=== PATIENT | male | born 1945 | race Caucasian/White ===

== ENCOUNTER 2020-05-16 07:47 | Outpatient (CLI) | payer MEDICARE, SELFPAY ==
--- NOTE | ~2020-05-16 | NM_ITS ---
EXAMINATION: NM bone scan whole body DATE: 05/16/2020 12:07 INDICATION: Malignant neoplasm of the prostate TECHNIQUE: 24.4 mCi Tc-99m HDP was administered intravenously. Delayed whole-body scintigrams were o btained. COMPARISON: There are no relevant recent imaging studies at our institution. FINDINGS: There is some soft tissue extravasation at the site of injection at the right antecubital fossa with linear extension of likely lymphatic uptake extending proximally in the anterior soft tissues of the right upper arm. Likely degenerative joint centered uptake at the bilateral hands and wrists and at t he left acromioclavicular joint. No other suspicious bone lesions to suggest metastatic disease. IMPRESSION: 1. No lesion suspicious for metastatic disease. Reviewed, dictated and finalized at location A.
== END 2020-05-16 07:48 | disposition home or self-care (01) ==
PROVIDERS: PCP Family Medicine; Visit Provider Urology
DX: C61 Malignant neoplasm of prostate (principal)
CPT/HCPCS: 78306; A9561

== ENCOUNTER 2020-06-27 09:50 | Outpatient (CLI) | payer MEDICARE, SELFPAY ==
--- NOTE | 2020-06-27 09:55 | ECG_ITS ---
Measurements Intervals [place] Rate: 58 P: -6 CO: 147 QRS: -5 QRSD: 95 T: 4 QT: 402 QTc: 397 Interpretive Statements SINUS BRADYCARDIA DELAYED PRECORDIAL R/S TRANSITION MINIMAL Q WAVES- INFERIOR LEADS BASELINE ARTIFACT- I, III, AVR, AVL BORDERLINE ECG Electronically Signed On 06-27-2020 10:27:57 CDT by Kishan Escobedo D.O.
[2020-06-27 10:41] LABS: Anion Gap 8 mmol/L (8-16); Blood Urea Nitrogen 22 mg/dL (9-20); Calcium 9.5 mg/dL (8.4-10.2); Carbon Dioxide 30 mmol/L (22-30); Chloride 101 mmol/L (98-107); Estimated Glomerular Filt Rate 59; Glucose 264 mg/dL (75-110); Potassium 4.5 mmol/L (3.4-5.0); Sodium 139 mmol/L (137-145)
== END 2020-06-27 09:51 | disposition home or self-care (01) ==
LOC: ANHSURGERY 09:55
PROVIDERS: Anesthesiology; PCP Family Medicine; Visit Provider Urology
DX: I10 Essential (primary) hypertension (principal); E11.9 Type 2 diabetes mellitus without complications; C61 Malignant neoplasm of prostate; Z01.818 Encounter for other preprocedural examination; R94.31 Abnormal electrocardiogram [ECG] [EKG]
CPT/HCPCS: 36415; 80048; 87086; 93005

== ENCOUNTER 2020-07-05 01:28 | Outpatient (CLI) | payer MEDICARE, SELFPAY ==
[2020-07-05 18:04] LABS: SARS-CoV-2 RNA PCR Negative
== END 2020-07-05 01:29 | disposition home or self-care (01) ==
LOC: ANHCOVIDDT 01:29
PROVIDERS: PCP Family Medicine; Visit Provider Urology
DX: Z01.812 Encounter for preprocedural laboratory examination (principal); Z20.828 Contact with and (suspected) exposure to other viral communicable diseases
CPT/HCPCS: 87635; C9803; U0003

== ENCOUNTER 2020-07-08 02:38 | Day surgery (SDC) | payer MEDICARE, SELFPAY ==
[2020-06-26 09:09] VITALS: BMI 26.1
[2020-07-08] VITALS (8 sets, daily range): BP systolic 138–169; BP diastolic 44–80; PULSE 53–71; RESP 12–18; TEMP 36.2–36.3; O2SAT 92–100
[2020-07-08] MEDS: LACTATED RINGERS 1,000 ML 30 ML IV CONT ×2 (11:55→15:10)
[2020-07-08 11:57] LABS: Glucose Point of Care 222 (65-105)
--- NOTE | 2020-07-08 12:53 | WPDHPUPDATE1 ---
History and Physical Update Update Date/Time: 07/08/20 12:53 History and Physical has been reviewed, including an updated exam of the patient. There are NO changes in the patient's condition. Risks, benefits, and alternatives have been discussed and questions answered. Patient agrees to proceed with procedure.
--- NOTE | 2020-07-08 13:17 | WPDANESEPPF ---
Anes - Initial Pre Proc Eval Procedure: Operation Date: 07/08/20 13:15 Proposed Procedures p Insertion SpaceOAR Hydrogel System - Rainer Nash MD Date/Time: 07/08/20 13:17 Surgeon: Rainer Nash MD Pre Op Diagnosis: Prostate Ca Patient Data Age: 75 Gender: M Height: 5 ft 4 in Weight: 67.85 kg Last Vital Signs Temp 36.3 C L 07/08/20 11:24 Pulse 61 07/08/20 11:24 Resp 18 07/08/20 11:24 BP 169/71 H 07/08/20 11:24 Pulse Ox 100 07/08/20 11:24 Allergies Allergy/AdvReac Type Severity Reaction Status Date / Time No Known Allergies Allergy Unverified 07/08/20 12:15 Home Medications Medication Instructions Recorded Confirmed Type aspirin [Adult Low Dose Aspirin] 81 mg PO QPM 06/26/20 07/08/20 History glipizide 10 mg PO QAM 06/26/20 07/08/20 History lisinopril 10 mg PO QAM 06/26/20 07/08/20 History metformin 1,000 mg PO BID 06/26/20 07/08/20 History metoprolol succinate 25 mg PO QPM 06/26/20 07/08/20 History pravastatin 20 mg PO QPM 06/26/20 07/08/20 History Laboratory Tests 07/08/20 11:55 POC Capillary Glucose 222 mg/dl H mg/dl (65-105) Patient hx anesthesia problems: none Family hx anesthesia problems: none PMFSH Past Medical History Medical History Afib Diabetes Hyperlipidemia Hypertension Social History Social History Smoking status: Never smoker Living arrangements: with family Spiritual care concerns: No Anes - Eval Final PreProcedure Day of Procedure 07/08/20 13:17 Patient weight: normal Heart: regular rate and rhythm Lungs: clear to auscultation Airway: Mallampati scale class II Neurological: alert and oriented Last oral intake: >/= 8 hours ASA classification: III Emergent: no Anesthetic plan: proceed Anesthesia type and monitoring: general GIVS and standard monitoring Informed Consent: The patient's anesthetic plan and its attendant risks and benefits were discussed with the patient/family/POA. Questions were solicited and answers provided to the satisfaction of the patient/family/POA.
--- NOTE | 2020-07-08 13:38 | WPDHPUPDATE1 ---
History and Physical Update Update Date/Time: 07/08/20 13:38 History and Physical has been reviewed, including an updated exam of the patient. There are NO changes in the patient's condition. Risks, benefits, and alternatives have been discussed and questions answered. Patient agrees to proceed with procedure. ROS - normal Plan for Space Oar placement.
[2020-07-08] MEDS: ceFAZolin 2 GM/D5W 50 ML 2 GM/50 ML BAG IVPB (13:44)
--- NOTE | 2020-07-08 14:07 | PM.PROC ---
Procedure Note - Detailed Date of procedure: 07/08/20 Pre-op diagnosis: Prostate Ca Post-op diagnosis: same Procedure performed: Space Oar placement Description of procedure: Patient is taken the operative suite and correctly identified. Once anesthesia was obtained he was placed in dorsal lithotomy position and prepped and draped usual sterile fashion. Transrectal ultrasound was then performed. The prostate was visualized in both transverse and sagittal views. Plane between the prostate and the rectum was easily identified. Using an spinal needle we went ahead and inserted this into the space between the prostate and the rectum. Placement was confirmed in both views. We went ahead and injected a little saline in the good separation of the prostate from the rectal wall. We then went ahead and placed the Space Oar mixture which had been prepared per instructions onto the spinal needle. This was injected in a slow pace. There was good separation of the prostate and the rectum. This was visualized on both views. Needle was removed. Patient is taken recovery room stable condition. Anesthesia: GLMA Surgeon: Rainer Nash MD Drains: No Packing: No Pathology: none sent Complications: No immediate complications Condition: stable Disposition: PACU
[2020-07-08 14:22] LABS: Glucose Point of Care 212 (65-105)
[2020-07-08] MEDS: fentaNYL CITRATE INJ (*CRX) 100 MCG/2 ML VIAL 25 MCG IV PUSH ×4 (14:30→14:45)
--- NOTE | 2020-07-08 15:30 | SUR.PHASEII ---
1534- Call to Dr. Nash' office to clarify when patient can resume taking home medication regimen ASA 81MG. Resume taking 07/11/2020.
== END 2020-07-08 15:58 | disposition home or self-care (01) ==
LOC: ANHSURGERY 11:11 → ANHENDO 13:40
PROVIDERS: PCP Family Medicine; Visit Provider Urology
PROC: (CPT 55874; principal; 2020-07-08 13:15)
DX: C61 Malignant neoplasm of prostate (principal)
CPT/HCPCS: 55874; A9270; C1889; J0690; J1100; J2405; J2704; J3010; J7120

== ENCOUNTER 2020-07-15 09:40 | Outpatient (CLI) | payer MEDICARE, SELFPAY ==
--- NOTE | ~2020-07-15 | MR_ITS ---
EXAMINATION: MR pelvis wo con DATE: 07/15/2020 11:15 INDICATION: Malignant neoplasm of prostate. TECHNIQUE: Magnetic resonance imaging (MRI) of the pelvis was performed without intravenous contrast. Sequences included axial and coronal FS FIESTA, coronal T2-weighted FS FSE, axial T2-weighted FSE, a xial STIR FSE, coronal and axial LAVA, axial dual-echo T1-weighted FSPGR, and axial DWI. COMPARISON: Bone scan 05/16/2020 FINDINGS: The prostate is moderately enlarged. There is a 2.7 x 1.3 cm fluid collection between the prostate an d rectum. There is diverticulosis of the colon without evidence of diverticulitis. There are no patho logically enlarged lymph nodes. There is no free intraperitoneal fluid. There is a left inguinal vesta ia containing fat. IMPRESSION: 1. Moderately enlarged prostate. A small fluid collection between the prostate and rectum may be martín tommy. No evidence of metastatic disease. Reviewed, dictated and finalized at location A. UCT DEMONSTRATOR IMPRESSION: 1. Moderately enlarged prostate. A small fluid collection between the prostate and rectum may be hematoma. No evidence of metastatic disease.
== END 2020-07-15 09:41 | disposition home or self-care (01) ==
PROVIDERS: PCP Family Medicine
DX: C61 Malignant neoplasm of prostate (principal); K57.30 Diverticulosis of large intestine without perforation or abscess without bleeding
CPT/HCPCS: 72195

== ENCOUNTER → 2021-05-12 02:45 | Outpatient (CLI) | payer MEDICARE, SELFPAY ==
[2021-05-12 20:46] LABS: SARS-CoV-2 RNA PCR Positive
== END ==
PROVIDERS: PCP Internal Medicine; Visit Provider Internal Medicine
DX: Z20.822 Contact with and (suspected) exposure to COVID-19 (principal)
CPT/HCPCS: C9803; U0003; U0005

== ENCOUNTER 2021-05-16 10:40 | Observation (INO) | payer MEDICARE, SELFPAY ==
[2021-05-16] VITALS (10 sets, daily range): BP systolic 139–149; BP diastolic 55–85; PULSE 81–93; RESP 18–24; TEMP 36.4–37.1; O2SAT 96–100; BMI 24.6
--- NOTE | ~2021-05-16 | XR_ITS ---
EXAMINATION: XR chest 1V portable INDICATION: Cough, COVID positive TECHNIQUE: Portable AP chest at 1120 hours COMPARISON: 07/01/2014 FINDINGS: There are patchy opacities of the mid and lower lung zones, left greater than right. No ple ural effusion or pneumothorax is identified. The cardiomediastinal silhouette is normal. IMPRESSION: 1. Patchy opacities of the mid and lower lung zones, likely COVID 19 pneumonia. Reviewed, dictated and finalized at location A.
--- NOTE | 2021-05-16 10:57 | ECG_ITS ---
Measurements Intervals [place] Rate: 86 P: -4 [place]: 148 QRS: 1 QRSD: 90 T: -7 QT: 356 QTc: 427 Interpretive Statements SINUS RHYTHM BORDERLINE T WAVE ABNORMALITY- INFERIOR LEADS BASELINE ARTIFACT- I, II, AVR, AVL, AVF, V3 BORDERLINE ECG Electronically Signed On 05-16-2021 14:20:51 CDT by Kishan Escobedo D.O.
[2021-05-16] MEDS: SODIUM CHLORIDE 0.9% IV 1,000 ML 999 ML IV CONT ×2 (11:20→12:34)
[2021-05-16 11:24] LABS: Basophils Percent Auto 0.2 % (0.2-1.2); Eosinophils Percent Auto 0.2 % (0-4.4); Hemoglobin 12.9 g/dL (14.0-18.0); Immature Granulocyte Absolute 0.03 K/mm3 (0.00-0.031); Immature Granulocyte Percent A 0.3 % (0-0.5); Lymphocytes Percent Auto 8.5 % (18.3-44.2); Mean Corpuscular HGB Conc 33.1 g/dl (32-36); Mean Corpuscular Volume 99.7 fl (80-100); Mean Platelet Volume 11.3 fl (7.4-10.4); Monocytes Percent Auto 9.1 % (2.6-8.5); Neutrophils Absolute Auto 8.7 K/mm3 (1.3-6.7); Neutrophils Percent Auto 81.7 % (45.5-73.1); Platelet Count Result 201 k/mm3 (150-375); Red Blood Count 3.91 M/mm3 (4.6-6.20); Red Cell Distribution Width 11.7 % (11.5-14.5); White Blood Count 10.6 K/mm3 (4.5-10.0)
--- NOTE | 2021-05-16 11:28 | ED.WEAKNESS ---
HPI - Weakness General Chief complaint: Weakness Stated complaint: weakness, covid + Time Seen by Provider: 05/16/21 10:42 Source: RN notes reviewed History of Present Illness HPI Narrative: Patient presents emergency department from home for weakness. Patient states he tested positive for COVID-19 on May 12 states symptoms began approximately the 10th states has been having decreased appetite and weakness at home he does note a cough this been nonproductive as well as intermittent fevers he denies any abdominal pain nausea or vomiting patient states he is a diabetic but is not been eating and drinking well states he has been taking his medications Related Data Home Medications Medication Instructions Recorded Confirmed aspirin 81 mg PO QPM 06/26/20 01/27/21 Allergies Allergy/AdvReac Type Severity Reaction Status Date / Time No Known Allergies Allergy Verified 05/16/21 10:56 Review of Systems Review of Systems: Gen.: Cinnamon fevers ENT: Denies congestion Respiratory: HPI CV: Denies chest pain or palpitations GI: Denies abdominal pain nausea, emesis or diarrhea denies burning, urgency, frequency or hematuria Musculoskeletal: Denies back pain or muscle pain Neuro: Reports weakness Skin: Denies rash Except as documented, all other systems reviewed and negative [facility] Past Medical History Medical History Afib Diabetes last A1c may 2020, 7.3 per pt Hyperlipidemia Hypertension Prostate cancer Surgical History Surgical History History of prior ablation treatment Family History Family History (Updated 09/12/20 @ 14:06 by Nino Meo APRN) Mother Breast cancer Dementia Sibling Malignant neoplasm of prostate Sibling Malignant neoplasm of prostate Other Diabetes mellitus Heart disease Social History Social History Smoking status: Never smoker Second hand tobacco smoke exposure: Yes Alcohol intake: never Gender identity (if verbalized by the patient): Male Spiritual care concerns: No Exam Narrative: APPEARANCE: No acute distress, nontoxic, resting in bed EYES: EOMI HEENT: Normocephalic, atraumatic, OMM RESPIRATORY: No respiratory distress Clear to auscultation bilaterally with no rhonchi wheezing or rales. CARDIOVASCULAR: Regular rate and rhythm without murmurs rubs or gallops. ABDOMINAL: Soft, nontender, nondistended, no rebound or guarding MUSCULOSKELETAl: Moves all extremities. No clubbing, cyanosis or edema. NEURO: Awake and alert. Following commands, speech normal, no focal deficits SKIN:: Warm, dry. No rashes lesions or abrasions PSYCHIATRIC: Normal affect/mood, Course Course Emergency Course: Called discussed with Dr. Camacho for the ICU discussed the patient's mild DKA at this time recommends giving 2 L of fluid and repeating BMP if anion gap is closed the patient does not need ICU and can go to the floor Called discussed with RAY Warren for Dr. Alexandre presentation work-up agrees with admission at this time will place on MedSurg at this time recommends no insulin and will recheck on floor recommends continued fluids Discussed with patient and family results of workup and diagnosis. Discussed need for admission. Patient and family understand and agree to current treatment plan Vital Signs Vital signs: Vital Signs Temperature 98.8 F 05/16/21 10:51 Pulse Rate 84 05/16/21 10:51 Respiratory Rate 22 H 05/16/21 10:51 Blood Pressure 147/55 H 05/16/21 10:51 Pulse Oximetry 97 05/16/21 10:51 Temperature 98.8 F 05/16/21 10:51 Pulse Rate 85 05/16/21 13:31 Respiratory Rate 20 05/16/21 13:31 Blood Pressure 149/85 H 05/16/21 13:31 Pulse Oximetry 100 05/16/21 13:31 MDM - Weakness Lab Data Result diagrams: 05/16/21 11:04 05/16/21 13:56 Labs:
[2021-05-16 11:36] LABS: Alanine Aminotransferase 23 U/L (4-50); Albumin Level 4.3 g/dL (3.5-5.1); Alkaline Phosphatase 62 U/L (38-126); Anion Gap 18 mmol/L (8-16); Aspartate Amino Transferase 27 U/L (17-59); Bilirubin,Total 0.6 mg/dL (0.2-1.3); Blood Urea Nitrogen 41 mg/dL (9-20); CRP 5.9 mg/dL (<1.0); Calcium 8.9 mg/dL (8.4-10.2); Carbon Dioxide 17 mmol/L (22-30); Chloride 101 mmol/L (98-107); Estimated CRCL calculation 30 ml/min; Estimated Glomerular Filt Rate 40; Glucose 291 mg/dL (65-110); Lactate Dehydrogenase 399 U/L (313-618); Potassium 4.8 mmol/L (3.4-5.0); Sodium 136 mmol/L (137-145)
[2021-05-16 12:10] LABS: Alveolar/Arterial O2 Gradient 41.4 mmHg; Base Excess ABG -8.7 mEq/l (+/-2.0); Fractional Inspired Oxygen 21 %; HCO3 ABG 16.3 mEq/l (22.0-26.0); Oxygen Content ABG 17.2 %vol (16.0-22.0); Oxygen Saturation ABG 92.8 % (95.0-100.0); Oxyhemoglobin 91.4 % THb (90.0-100.0); PCO2 ABG 32.5 mmHg (35.0-45.0); PO2 ABG 69.4 mmHg (80.0-100.0); Total Hemoglobin 13.4 g/dL (12.0-18.0); pH ABG 7.318 (7.350-7.450)
[2021-05-16 12:11] LABS: Device ROOM AIR; Modified Allen's Test Pass; Site Drawn RIGHT RADIAL
[2021-05-16 12:53] LABS: Add Urine Microscopic? YES; Appearance Urine Cloudy (Clear); Bacteria Urine Trace /hpf; Bilirubin Urine Negative (Negative); Blood Urine Negative (Negative); Color Urine Yellow (Yellow); Glucose Urine UA 3+ mg/dL (Negative); Hyaline Casts Urine 15-19 /lpf; Ketones Urine 1+ mg/dL (Negative); Leukocyte Esterase Ur Negative LEU/UL (Negative); Mucus Urine Rare /lpf; Nitrate Urine Negative (Negative); Protein Urine 1+ mg/dL (Negative); Specific Grav Ur 1.017 (1.001-1.035); Squamous Epithelial Cell Urine Rare /hpf (Few); Urobilinogen Urine Negative mg/dL (<2.0); WBC Urine 0-3 /hpf
[2021-05-16 13:03] LABS: Prothrombin Time 13.1 Seconds (11.1-14.7)
[2021-05-16 13:04] LABS: Partial Thromboplastin Time 34.7 SECONDS (22.3-36.8)
[2021-05-16 14:19] LABS: Anion Gap 14 mmol/L (8-16); Blood Urea Nitrogen 37 mg/dL (9-20); Calcium 8.2 mg/dL (8.4-10.2); Carbon Dioxide 18 mmol/L (22-30); Chloride 105 mmol/L (98-107); Estimated CRCL calculation 39 ml/min; Estimated Glomerular Filt Rate 54; Glucose 284 mg/dL (65-110); Potassium 5.2 mmol/L (3.4-5.0); Sodium 137 mmol/L (137-145)
--- NOTE | 2021-05-16 15:00 | PM.IMHP ---
H&P: HPI History of Present Illness Date/Time: 05/16/21 15:00 Chief Complaint: Weakness. Narrative: This is a 76-year-old male with hypertension, hyperlipidemia, and diabetes who presented to the emergency department earlier today via private vehicle from home for evaluation of weakness. He has been feeling unwell since around May 08 and he received a call the following day that he was exposed to someone positive for COVID-19. Unfortunately he tested positive for the same on May 12 despite having been vaccinated. His symptoms include intermittent fevers, poor appetite with decreased oral intake, nonproductive cough, and progressive weakness. Chest x-ray done in the emergency department showed findings suggestive of COVID-19 pneumonia and labs compatible with mild diabetic ketoacidosis. Anion gap did close with IV fluid rehydration in the emergency department and he is now being admitted to the floor for closer monitoring. At the time my evaluation his main complaint is of an ongoing, nagging cough as well as nausea. He thinks he would feel better if he was able to eat however the nausea has just been too significant. He has not vomited. No anosmia or dysgeusia. He had loose stools early on but that has improved. No chest pain or pleuritic pain. Review of Systems Review of Systems: Twelve systems were reviewed with pertinent positives and negatives as per HPI. Patient reports that his fasting glucose is usually around 200 however improved to the low 100s throughout the rest of the day. No blurry vision, polydipsia, or polyuria. He does not recall his most recent hemoglobin A1c. Except as documented, all other systems were reviewed and are negative. [facility] Past Medical History Medical History Chronic kidney disease, stage 3 Baseline creatinine is around 1.30. Hearing loss Hyperlipidemia Hypertension Paroxysmal atrial fibrillation Prostate cancer Type 2 diabetes mellitus Hemoglobin A1c was 7.8% on 05/05/2021. Surgical History Surgical History History of cardiac radiofrequency ablation (2017) Performed at [facility] in [place]. History of tonsillectomy History of vocal cord polypectomy Family History Family History Mother Breast cancer Dementia Sibling Malignant neoplasm of prostate Sibling Malignant neoplasm of prostate Other Diabetes mellitus Heart disease Social History Social History (Updated 05/17/21 @ 00:42 by Briana Schultz PA-C) Social History: Surrogate decision maker: Leny Ludwig, spouse. Code status: Full code. Smoking status: Never smoker Smokeless tobacco user: chewing tobacco Second hand tobacco smoke exposure: Yes Additional smoking assessment comments: former occational use of chewing tobacco. chewing tobacco end date 1969 Alcohol intake: never Substance use: never Additional living arrangements comments: Resides in [place] with his . 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 Spiritual care concerns: No Meds Home Medications and Allergies Home Medications Medication Instructions Recorded Confirmed Type aspirin 81 mg PO QPM 06/26/20 05/16/21 History glipizide 5 mg tablet See Rx Instructions .ROUTE 12/31/20 05/16/21 Rx .COMPLEX #180 tablet pravastatin 20 mg tablet See Rx Instructions .ROUTE 01/20/21 05/16/21 Rx .COMPLEX #90 tablet metoprolol succinate 25 mg 25 mg PO QPM #90 tablet 02/19/21 05/16/21 Rx tablet,extended release 24 hr metformin 500 mg tablet 1,000 mg PO BID #180 tablet 02/20/21 05/16/21 Rx lisinopril 10 mg tablet 20 mg PO QAM #90 tablet 03/30/21 05/16/21 Rx blood sugar diagnostic [Accu-Chek 05/16/21 05/16/21 History Guide test strips] Allergies Allergy/AdvReac Type Severity Reaction Status Date /
--- NOTE | 2021-05-16 16:17 | ADMGEN ---
This patient, Juan Ludwig III, was admitted to [facility] Surg Room 330-01 at 1550. Patient/family oriented to hospital policies and general routines including ID bracelet, bed and alarms, visiting hours, pain management, procedures, bathroom and other care routines, personal items, smoking policy, room service/diet, and visiting hours. Information on how to activate the Rapid Response Team has been discussed. Patient/Family are encouraged to report perceived risks to care and to ask questions if they do not understand what they are told or what they should do.
[2021-05-16 17:11] LABS: Glucose Point of Care 252 mg/dl (65-105)
[2021-05-16] MEDS: INSULIN ASPART (*BKC) 100 UNITS/ML SUB-Q (18:37)
[2021-05-16] MEDS: SODIUM CHLORIDE 0.9% IV 1,000 ML 125 ML IV CONT (18:37)
[2021-05-16] MEDS: ONDANSETRON INJ 4 MG/2 ML VIAL IV PUSH (21:14)
[2021-05-16 21:28] LABS: Glucose Point of Care 166 mg/dl (65-105)
[2021-05-17] VITALS (9 sets, daily range): BP systolic 120–141; BP diastolic 54–64; PULSE 73–93; RESP 16–20; TEMP 36.3–37.1; O2SAT 94–98
[2021-05-17 06:40] LABS: Basophils Percent Auto 0.2 % (0.2-1.2); Eosinophils Percent Auto 0.2 % (0-4.4); Hematocrit 33.6 % (42.0-52.0); Hemoglobin 10.9 g/dL (14.0-18.0); Immature Granulocyte Absolute 0.05 K/mm3 (0.00-0.031); Immature Granulocyte Percent A 0.6 % (0-0.5); Lymphocytes Absolute Auto 0.72 K/mm3 (0.9-3.2); Lymphocytes Percent Auto 8.7 % (18.3-44.2); Mean Corpuscular HGB Conc 32.4 g/dl (32-36); Mean Corpuscular Hemoglobin 32.4 pg (26-34); Mean Platelet Volume 11.1 fl (7.4-10.4); Monocytes Absolute Auto 0.7 K/mm3 (0.1-0.6); Neutrophils Absolute Auto 6.7 K/mm3 (1.3-6.7); Neutrophils Percent Auto 81.3 % (45.5-73.1); Platelet Count Result 220 k/mm3 (150-375); Red Blood Count 3.36 M/mm3 (4.6-6.20); Red Cell Distribution Width 11.4 % (11.5-14.5); White Blood Count 8.3 K/mm3 (4.5-10.0)
[2021-05-17 06:53] LABS: Alanine Aminotransferase 18 U/L (4-50); Albumin Level 3.7 g/dL (3.5-5.1); Alkaline Phosphatase 49 U/L (38-126); Anion Gap 14 mmol/L (8-16); Aspartate Amino Transferase 25 U/L (17-59); Bilirubin,Total 0.6 mg/dL (0.2-1.3); Blood Urea Nitrogen 24 mg/dL (9-20); Calcium 8.2 mg/dL (8.4-10.2); Carbon Dioxide 17 mmol/L (22-30); Chloride 106 mmol/L (98-107); Estimated CRCL calculation 46 ml/min; Estimated Glomerular Filt Rate > 60; Glucose 245 mg/dL (65-110); Magnesium 1.6 mg/dL (1.6-2.3); Potassium 5.6 mmol/L (3.4-5.0); Sodium 137 mmol/L (137-145)
[2021-05-17] MEDS: INSULIN ASPART (*BKC) 100 UNITS/ML SUB-Q ×2 (08:19→12:54)
[2021-05-17 08:20] LABS: Glucose Point of Care 237 mg/dl (65-105)
[2021-05-17] MEDS: ENOXAPARIN 40 MG/0.4 ML SYRINGE SUB-Q (08:20)
[2021-05-17] MEDS: lisinopriL 20 MG TABLET PO (08:21)
[2021-05-17] MEDS: glipiZIDE 5 MG TABLET 10 MG BY MOUTH (08:21)
[2021-05-17] MEDS: SODIUM POLYSTYRENE SULFONONATE 15 GM/60 ML BTL PO (09:31)
[2021-05-17] MEDS: SODIUM CHLORIDE 0.9% IV 1,000 ML 125 ML IV CONT (09:46)
[2021-05-17 12:53] LABS: Glucose Point of Care 209 mg/dl (65-105)
--- NOTE | 2021-05-17 13:41 | PM.IMPN ---
Progress Note: A&P Assessment and Plan (1) Pneumonia due to COVID-19 virus: Code(s): U07.1 - COVID-19; J12.82 - Pneumonia due to coronavirus disease 2019 Status: Acute Assessment and Plan: Supportive care including albuterol MDI, analgesics, and antitussives if needed. 96% on room air. Improved today. Will watch for 24 hours and if feeling better tomorrow will be discharged. (2) Diabetic ketoacidosis: Code(s): E11.10 - Type 2 diabetes mellitus with ketoacidosis without coma Status: Acute Assessment and Plan: Patient met criteria for mild DKA on arrival to the emergency department with metabolic acidosis and anion gap of 18, hyperglycemia, elevated beta hydroxybutyrate, and mild ketonuria. Anion gap has closed with IV fluid rehydration. IV fluids were discontinued at this time. He is well hydrated on examination. And labs are improved from arrival. Continue monitoring. Repeat BMP in the morning (3) Dehydration: Code(s): E86.0 - Dehydration Status: Acute Assessment and Plan: Much improved today. Creatinine almost down to normal. (4) Chronic kidney disease, stage 3: Code(s): N18.30 - Chronic kidney disease, stage 3 unspecified Status: Acute Assessment and Plan: Creatinine improved to 1.1 this morning after IV fluid hydration. Which is back at his baseline. (5) Type 2 diabetes mellitus: Code(s): E11.9 - Type 2 diabetes mellitus without complications Status: Acute Assessment and Plan: Continue glipizide now that creatinine is back to baseline. Initiate sliding scale insulin, Accu-Cheks, and hypoglycemic protocol. (6) Hypertension: Code(s): I10 - Essential (primary) hypertension Status: Acute Assessment and Plan: Blood pressures were reviewed and they are reasonable. Continue antihypertensives and monitor daily. (7) Hyperkalemia: Code(s): E87.5 - Hyperkalemia Status: Acute Assessment and Plan: Potassium was elevated at 5.6 this morning and Kayexalate was given. Will repeat potassium in the morning. Time Spent With Patient Time with patient: 25 - 35 minutes Subjective Date/time seen: 05/17/21 13:41 Interval history: Date of service 05/17/2021: Patient reports feeling much better today. He has more energy. He was able to eat breakfast without any issues. He continues to have a dry cough and mild shortness of breath with exertion. Denies any chest pain, fevers, chills, nausea, vomiting, abdominal pain, leg swelling, calf pain, or any other symptoms at this time. Review of Systems Review of Systems: All systems reviewed & are unremarkable except as noted in HPI and below Exam Narrative: General: 76-year-old man laying flat in bed watching TV. Appears comfortable. In no acute distress. Skin: No jaundice or cyanosis. Good skin turgor. Neck: Full range of motion. Supple Respiratory: Lungs are clear to auscultation bilaterally. No bony chest wall tenderness. Cardiovascular: The heart has a regular rate and rhythm without murmur. Lower extremities: No lower extremity edema. Distal pulses are easily palpated. No calf tenderness to palpation. Gastrointestinal: The abdomen is soft, nontender and nondistended with active bowel sounds. Psychiatric: Lucid and oriented. Memory intact. Neurologic: No focal deficits. Speech is clear. No facial drooping. Objective Data Vital Signs Vital Signs: Vital Signs - 24 hr 05/16/21 15:32 05/16/21 17:30 05/16/21 18:00 Temperature Pulse Rate 81 90 Respiratory Rate 24 H Blood Pressure 144/79 H
[2021-05-17 17:48] LABS: Glucose Point of Care 186 mg/dl (65-105)
[2021-05-17] MEDS: ASPIRIN 81 MG ENTERIC TABLET PO (18:05)
[2021-05-17] MEDS: PRAVASTATIN SODIUM 20 MG TABLET BY MOUTH (18:06)
[2021-05-17] MEDS: METOPROLOL SUCCINATE EXT REL 25 MG TABCR PO (18:06)
[2021-05-17 23:46] LABS: Glucose Point of Care 204 mg/dl (65-105)
[2021-05-18] VITALS: BP 133/65; PULSE 70; RESP 20; TEMP 36.6; O2SAT 98
[2021-05-18 04:00] VITALS: BP 133/62; PULSE 72; RESP 20; TEMP 37; O2SAT 96
[2021-05-18 06:43] LABS: Anion Gap 9 mmol/L (8-16); Blood Urea Nitrogen 20 mg/dL (9-20); Calcium 8.3 mg/dL (8.4-10.2); Carbon Dioxide 23 mmol/L (22-30); Chloride 105 mmol/L (98-107); Estimated CRCL calculation 50 ml/min; Estimated Glomerular Filt Rate > 60; Glucose 262 mg/dL (65-110); Magnesium 1.6 mg/dL (1.6-2.3); Potassium 4.4 mmol/L (3.4-5.0); Sodium 137 mmol/L (137-145)
[2021-05-18 08:00] VITALS: BP 125/61; PULSE 72; RESP 16; TEMP 36.7; O2SAT 96
[2021-05-18 08:26] LABS: Glucose Point of Care 225 mg/dl (65-105)
[2021-05-18] MEDS: ENOXAPARIN 40 MG/0.4 ML SYRINGE SUB-Q (09:14)
[2021-05-18] MEDS: glipiZIDE 5 MG TABLET 10 MG BY MOUTH (09:14)
[2021-05-18] MEDS: lisinopriL 20 MG TABLET PO (09:14)
[2021-05-18] MEDS: INSULIN ASPART (*BKC) 100 UNITS/ML SUB-Q ×2 (09:15→12:05)
[2021-05-18] MEDS: guaiFENesin/DEXTROMETHORPHAN 10 ML UDC 5 ML PO ×2 (09:22)
[2021-05-18] MEDS: MAGNESIUM SULFATE 3GM/D5W100ML 3 GM/100 ML BAG IVPB (10:09)
[2021-05-18 11:54] LABS: Glucose Point of Care 226 mg/dl (65-105)
[2021-05-18 12:00] VITALS: BP 146/65; PULSE 80; RESP 16; TEMP 36.6; O2SAT 95
--- NOTE | 2021-05-18 12:32 | PM.DS ---
DS: Admitting Diagnosis Discharge Date 05/18/21 Admitting Diagnosis Generalized weakness DS: Discharge Diagnosis Discharge Diagnosis (1) Pneumonia due to COVID-19 virus: Code(s): U07.1 - COVID-19; J12.82 - Pneumonia due to coronavirus disease 2018 Status: Acute Assessment and Plan: The patient is a 76-year-old man with a history diabetes, hypertension, hyperlipidemia, who presented to the emergency room for generalized weakness. Patient was found to be positive for COVID-19 on 05/08/2021. He has been fully vaccinated. He has been having intermittent fevers, poor appetite, decreased oral intake, nonproductive cough and progressive weakness which brought him into the emergency room for further evaluation. Chest x-ray on arrival showed findings suggestive COVID-19 pneumonia in labs comparable with mild diabetic ketoacidosis. He was given IV fluid hydration with improvement and closure of his anion gap. He was admitted into the hospital to continue light IV fluid hydration and monitor patient's symptoms. He has been eating and drinking without any issues at this time. Remained comfortable on room air. Regained his strength, eating and drinking without any issues. He is stable at this time for discharge to follow-up with primary care provider within 1 week for further evaluation after discharge. Return to ER warnings given. The patient understands and agrees with the plan all questions answered. (2) Diabetic ketoacidosis: Code(s): E11.10 - Type 2 diabetes mellitus with ketoacidosis without coma Status: Acute Assessment and Plan: Patient met criteria for mild DKA on arrival to the emergency department with metabolic acidosis and anion gap of 18, hyperglycemia, elevated beta hydroxybutyrate, and mild ketonuria. Anion gap has closed with IV fluid rehydration. IV fluids were discontinued at this time. He is well hydrated on examination. And labs are improved from arrival. (3) Dehydration: Code(s): E86.0 - Dehydration Status: Acute Assessment and Plan: Much improved today. Creatinine almost down to normal. (4) Chronic kidney disease, stage 3: Code(s): N18.30 - Chronic kidney disease, stage 3 unspecified Status: Acute Assessment and Plan: Creatinine improved to 1.10 this morning after IV fluid hydration. Which is back at his baseline. (5) Type 2 diabetes mellitus: Code(s): E11.9 - Type 2 diabetes mellitus without complications Status: Acute Assessment and Plan: Continue glipizide now that creatinine is back to baseline. (6) Hypertension: Code(s): I10 - Essential (primary) hypertension Status: Acute Assessment and Plan: Blood pressures were reviewed and they are reasonable. Continue antihypertensives (7) Hyperkalemia: Code(s): E87.5 - Hyperkalemia Status: Acute Assessment and Plan: Potassium 4.4. Normal after Kayexalate yesterday. DS: Summary Hospital Course Hospital Course: See above Time Spent with Patient Time attestation: Total time spent providing and/or coordinating discharge services: 41 Exam Narrative: General: 76-year-old man laying flat in bed watching TV. Appears comfortable. In no acute distress. Skin: No jaundice or cyanosis. Good skin turgor. Neck: Full range of motion. Supple Respiratory: Lungs are clear to auscultation bilaterally. No bony chest wall tenderness. Cardiovascular: The heart has a regular rate and rhythm without murmur. Lower extremities: No lower extremity edema. Distal pulses are easily palpated. No calf tende
== END 2021-05-18 13:30 | disposition home or self-care (01) ==
LOC: ANHED 14:32 → ANH3MEDSUR 14:39
PROVIDERS: Physician Assistant; Admitting Provider Internal Medicine; Emergency Provider Emergency Medicine; PCP Internal Medicine; Visit Provider Internal Medicine
DX: U07.1 COVID-19 (principal); J12.82 Pneumonia due to coronavirus disease 2019; I12.9 Hypertensive chronic kidney disease with stage 1 through stage 4 chronic kidney disease, or unspecified chronic kidney disease; E78.5 Hyperlipidemia, unspecified; E11.10 Type 2 diabetes mellitus with ketoacidosis without coma; E86.0 Dehydration; E87.5 Hyperkalemia; E11.22 Type 2 diabetes mellitus with diabetic chronic kidney disease; N18.30 Chronic kidney disease, stage 3 unspecified; Z85.46 Personal history of malignant neoplasm of prostate; Z87.891 Personal history of nicotine dependence; Z79.84 Long term (current) use of oral hypoglycemic drugs
CPT/HCPCS: 36415; 36600; 71045; 80048; 80053; 81001; 82010; 82805; 82948; 83615; 83735; 85025; 85610; 85730; 86140; 93005; 96361; 96372; 96374; 96375; 99285; A9270; G0378; J1650; J1815; J2405; J3475; J7030

== ENCOUNTER → 2021-10-27 08:57 | Outpatient (CLI) | payer MEDICARE, SELFPAY ==
--- NOTE | ~2021-10-27 | US_ITS ---
US renal BI 10/27/2021 09:16 Procedure: Realtime transabdominal ultrasound of the kidneys and bladder. Indication: Stage II kidney disease Comparison: No prior studies Findings: Renal echotexture is normal bilaterally without hydronephrosis, contour deforming mass or r enal calculus. The right kidney measures 9.5 cm and left kidney measures 9.4 cm. Bladder within norm al limits. Impression: 1: Unremarkable renal ultrasound. No stones, masses or hydronephrosis. Reviewed, dictated and finalized at location A. S REPRESENTATIVE [employer]IVE[employer] Impression: 1: Unremarkable renal ultrasound. No stones, masses or hydronephrosis.
== END ==
PROVIDERS: PCP Internal Medicine; Visit Provider Internal Medicine Nephrology
DX: N18.2 Chronic kidney disease, stage 2 (mild) (principal)
CPT/HCPCS: 76775

== ENCOUNTER 2022-12-10 16:02 | Outpatient (CLI) | payer MEDICARE, SELFPAY ==
--- NOTE | ~2022-12-10 | CT_ITS ---
EXAMINATION: CT abdomen wo con DATE: 12/10/2022 16:19 INDICATION: Localized mass, swelling and lump TECHNIQUE: Computed tomography (CT) of the abdomen was performed without intravenous contrast. The do se-length product (DLP) was 275.49 mGy-cm. Automated exposure control and iterative reconstruction te chnique were employed. COMPARISON: 12/01/2022 FINDINGS: The lung bases are clear. The heart size is normal. A stone is present in the nondistended gallbladder. There is an 8 mm cyst of the left hepatic lobe. The spleen, pancreas, and adrenal glands are normal. The left kidney is unremarkable. There is a 1 mm nonobstructing stone of the right kidne y. There are no pathologically enlarged abdominal lymph nodes. There is calcified atherosclerosis of the aorta and many of the other arteries. No free intraperitoneal gas or evidence of bowel obstructio n. IMPRESSION: 1. Cholelithiasis without evidence of cholecystitis. 2. Punctate nonobstructing right nephrolithiasis. Reviewed, dictated and finalized at location F.
== END 2022-12-10 16:03 | disposition home or self-care (01) ==
PROVIDERS: PCP Nurse Practitioner; Visit Provider Nurse Practitioner
DX: R22.2 Localized swelling, mass and lump, trunk (principal); K80.20 Calculus of gallbladder without cholecystitis without obstruction; N20.0 Calculus of kidney
CPT/HCPCS: 74150